=== PATIENT | female | born 1950 | race Caucasian/White ===

== ENCOUNTER 2016-07-26 15:20 | Emergency (ER) | payer OTHER ==
--- NOTE | ~2016-07-26 | EKG ---
PATIENT: RADHA SAINI UNIT #: [id number] Ventricular Rate: 72 BPM Atrial Rate: 72 BPM P-R Interval: 178 ms QRS Duration: 80 ms Q-T Interval: 406 ms QTC Calculation(Bezet): 444 ms P [place]: 39 degrees Calculated R [place]: -3 degrees Calculated T [place]: 24 degrees Diagnosis Line: Normal sinus rhythm Diagnosis Line: Minimal voltage criteria for LVH, may be normal Diagnosis Line: variant Diagnosis Line: Borderline ECG Diagnosis Line: When compared with ECG of 03-DEC-2009 10:23, Diagnosis Line: No significant change was found Diagnosis Line: Confirmed by ADITI DIANA MD ([id number]) on Diagnosis Line: 07/30/2016 3:22:15 PM INTERPRETING MD: LEBRON KAUR
[~2016-07-26 15:20] MED LIST: AMOXICILLIN875 MG PO; AMOXIL500 M2 PO; CIPRODEX OTIC7.5 ML AD; CORTISPORIN-TC10 M1 OT; IBUPROFEN; IBUPROFEN800 MG PO; PHENERGAN25 MG PO; PROPRANOLOL HCL10 MG PO; VICODIN 5/500 T1 TAB PO
[2016-07-26] MEDS ORDERED: MOBIC (15:21)
[2016-07-26] MEDS ORDERED: CYMBALTA20 M1 (15:21)
[2016-07-26] MEDS ORDERED: INDERAL LA (15:21)
[2016-07-26] MEDS ORDERED: FLEXERIL10 MG (15:21)
[2016-07-26 16:02] LABS: URINE SOURCE CLEAN CATCH
[2016-07-26 16:06] LABS: MICRO INDICATED? YES; URINE APPEARANCE CLEAR; URINE BILIRUBIN NEG (NEG); URINE BLOOD NEG (NEG); URINE COLOR YELLOW; URINE GLUCOSE NEG (NORM); URINE KETONE NEG (NEG); URINE LEUKOCYTE ESTERASE 2+ (NEG); URINE NITRATE NEG (NEG); URINE PH 5.5 (5-8); URINE PROTEIN NEG (NEG); URINE SPECIFIC GRAVITY <=1.005 (1.003-1.035); URINE UROBILINOGEN 0.2 MG/DL (NORM)
[2016-07-26 16:14] LABS: CULTURE INDICATED? YES; URINE BACTERIA NEG (NEG); URINE RBC 0-2 /[HPF] (0-2)
[2016-07-26 16:15] LABS: URINE SQUAMOUS EPITHELIAL CELL OCCAS /[HPF]; URINE TRANSITIONAL EPI CELLS FEW /[HPF]
== END 2016-07-26 16:47 | disposition home or self-care (01) ==
LOC: SED 15:20
PROVIDERS: Emergency Medicine
DX: S16.1XXA Strain of muscle, fascia and tendon at neck level, initial encounter (principal); S39.012A Strain of muscle, fascia and tendon of lower back, initial encounter; N39.0 Urinary tract infection, site not specified; Z98.51 Tubal ligation status; Z88.2 Allergy status to sulfonamides; Z88.5 Allergy status to narcotic agent; Z88.1 Allergy status to other antibiotic agents; Z88.8 Allergy status to other drugs, medicaments and biological substances; Z91.040 Latex allergy status; X50.1XXA Overexertion from prolonged static or awkward postures, initial encounter; Y92.9 Unspecified place or not applicable
CPT/HCPCS: 81003; 87086; 93005; 99283